=== PATIENT | male | born 1970 | race Asian ===

== ENCOUNTER 2019-09-23 14:10 | Emergency (ER) | payer MEDICAID ==
[~2019-09-23] VITALS: Ht 170.2 cm; Wt 81.8 kg
[2019-09-23] MEDS ORDERED: METHOCARBAMOL 500 MG TABLET PO ONE (15:15)
[2019-09-23] MEDS ORDERED: KETOROLAC TROMETHAMINE 60 MG/2 ML VIAL IM ONE (15:15)
[2019-09-23 15:50] VITALS: BP 132/95
== END 2019-09-23 16:35 | disposition home or self-care (01) ==
LOC: EMS 14:12
DX: S80.11XA Contusion of right lower leg, initial encounter (principal); S10.83XA Contusion of other specified part of neck, initial encounter; Y04.0XXA Assault by unarmed brawl or fight, initial encounter; Y93.89 Activity, other specified; Y92.89 Other specified places as the place of occurrence of the external cause; Y99.8 Other external cause status
CPT/HCPCS: 72040; 73080; 73630; 96372; 99284; J1885